=== PATIENT | female | born 1960 | race Caucasian/White ===

== ENCOUNTER → 2021-10-29 10:50 | Outpatient (REF) | payer OTHER, SELFPAY | LOC: HO.SL 10:50 | PROVIDERS: PCP Internal Medicine; Visit Provider Psychiatry & Neurology Neurology | DX: G47.33 Obstructive sleep apnea (adult) (pediatric) (principal); G47.10 Hypersomnia, unspecified; G47.62 Sleep related leg cramps; R06.83 Snoring | CPT/HCPCS: 95806 ==

== ENCOUNTER → 2021-11-13 15:12 | Outpatient (BNVA) | payer OTHER, SELFPAY | PROVIDERS: PCP Internal Medicine; Visit Provider Psychiatry & Neurology Neurology | DX: G24.3 Spasmodic torticollis (principal); G43.909 Migraine, unspecified, not intractable, without status migrainosus; R25.1 Tremor, unspecified; G47.62 Sleep related leg cramps; G47.10 Hypersomnia, unspecified; R06.83 Snoring | CPT/HCPCS: 64616; J0585 ==

== ENCOUNTER → 2022-03-05 08:24 | Outpatient (BNVA) | payer OTHER, SELFPAY | PROVIDERS: PCP Internal Medicine; Visit Provider Psychiatry & Neurology Neurology | DX: G24.9 Dystonia, unspecified (principal); G47.62 Sleep related leg cramps; G47.33 Obstructive sleep apnea (adult) (pediatric); G24.3 Spasmodic torticollis | CPT/HCPCS: 64616; J0585 ==

== ENCOUNTER → 2022-06-11 08:43 | Outpatient (BNVA) | payer OTHER, SELFPAY | PROVIDERS: PCP Internal Medicine; Visit Provider Nurse Practitioner Family | DX: R06.83 Snoring (principal); G47.10 Hypersomnia, unspecified; G47.62 Sleep related leg cramps; R68.89 Other general symptoms and signs; M54.9 Dorsalgia, unspecified; M47.812 Spondylosis without myelopathy or radiculopathy, cervical region ==

== ENCOUNTER → 2022-06-15 07:21 | Outpatient (BNVA) | payer OTHER, SELFPAY | PROVIDERS: PCP Internal Medicine; Visit Provider Psychiatry & Neurology Neurology | DX: G24.3 Spasmodic torticollis (principal); G47.62 Sleep related leg cramps; G47.33 Obstructive sleep apnea (adult) (pediatric); Z79.899 Other long term (current) drug therapy | CPT/HCPCS: 64616; J0585 ==

== ENCOUNTER 2022-09-20 07:32 | Outpatient (AMB) | payer OTHER, SELFPAY ==
--- NOTE | 2022-09-20 07:36 | MHC.OFFVIS ---
Intake Vital Signs 09/20/22 07:39 Weight 191 lb BP 126/76 Blood Pressure Location Rt brachial Position Sitting Pulse 60 Pulse Source Pulse Oximeter Pulse Oximetry (%) 97 Oxygen Delivery Method Room Air Intake Visit Reasons: BOTOX-lvm Intake Note: Botox Injection Promotions Executive Producer Required: No Allergies No Known Allergies Allergy (Verified 09/20/22 07:37) HPI HPI Comments History of Present Illness Details 61y/o female comes for treatment of his cervical dystonia ? Side effects including spread of toxin effect, dysphagia, breathing difficulties , bronchitis etc was discussed in detail and the patient agreed to the procedure.An informed consent was obtained ??? Botulinum toxin type A 200units X 1 -was diluted with 4 cc of normal saline at a concentration of 25 units in 0.5cc saline. Lot number [id number] expiration 11/2024 ??? Muscles injected ??? lani Splenius - 25 units each ??? Bi levator 25 units each Left semispinalis 10 right semispinalis 10 ??? BilTrapezius 30 units each lani Temporalis 10 units each ??? Total used 200 units PFSH Medical History Asthma Back pain Cervical spondylosis Hiatal hernia Skin cancer Surgical History H/O neck surgery History of ear surgery History of facial surgery Status post Mohs surgery Family History Father [place] (myocardial infarction) HTN (hypertension) CAD (coronary artery disease) Paternal Grandmother DM (diabetes mellitus) Mother Brain embolism and thrombosis Social History Household Members: Spouse Household Members Other:: , daughter and grandson Alcohol intake: never Patient Tobacco Use Status: Never used Tobacco Physical Exam Vital Signs: Last Vital Signs Pulse 60 09/20/22 07:39 BP 126/76 09/20/22 07:39 Pulse Ox 97 09/20/22 07:39 Oxygen Delivery Method Room Air 09/20/22 07:39 Const General: cooperative, healthy appearing and comfortable Nutritional Appearance: average body habitus Orientation/consciousness: patient oriented x3 Limitations: no limitations HEENT Other: mallampatti grade 4 Head: Yes normal to inspection and Yes normocephalic Face and sinus: Yes normal facial exam Neck Other: head tremors restricted range of motion,tenderness in left lateral cervical muscles - dystonia Neck: Yes normal visual inspection Neuro Other: Head tremor General: patient oriented x3 and tone normal Motor exam (neuro): 5/5 motor strength present throughout Deep tendon reflexes (DTR's): Right triceps reflex intensity grade: 2+, Left triceps reflex intensity grade: 2+, Rt Biceps (C5, C6): 2+, Left biceps reflex intensity grade: 2+, Right brachioradialis reflex intensity grade: 2+, Left brachioradialis reflex intensity grade: 2+, Right patellar reflex intensity grade: 3+, Left patellar reflex intensity grade: 3+, Right ankle reflex intensity grade: 3+ and Left ankle reflex intensity grade: 3+ Coordination: coiifn-ul-ohnd test normal Psych Appearance: grossly normal Speech and movement: Normal speech and movement present Office Procedures Botulinum toxin Injection 67719 - Dystonia Procedure code (CPT) selection complete Office Meds onabotulinumtoxinA Performing Provider: Jerri Bose MD Administered by: Jerri Bose MD on 09/20/22 08:40 Dose Route Admin Location Lot Number Expiration Date NDC Senior Program Analyst 200 unit IM [id number] 11/14/24 9757-9323-90 ALLERGAN/BOTOX Comments: see hpi Assessment & Plan Assessment & Plan (1) Spasmodic torticollis: Code(s): 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 The total AHI was 15/hr and oxygen dhruv was 82%. Code(s): G47.33 - Obstructive sleep apnea (adult) (pediatric) Plan Patient tolerated the procedure well she will call with any side effects Continue propranolol LA 120 mg qd for now Orders: Orders AMB Botulinum toxin Injection - Patient Supplied Today G24.3 - Spasmodic torticollis Coding Level of Care Code Est Pt Level 1 (44314) Diagnoses Spasmodic torticollis G24.3 Leg cramps, sleep related G47.62 SUSAN (obstructive sleep apnea) G47.33 CPT Codes Botox Injection - Botox 4: 37252 - Dystonia ([id number])
[2022-09-20 07:39] VITALS: BP 126/76; PULSE 60; O2SAT 97
== END 2022-09-20 08:09 | disposition home or self-care (01) ==
PROVIDERS: Visit Provider Psychiatry & Neurology Neurology
DX: G24.3 Spasmodic torticollis (principal)
CPT/HCPCS: 64616

== ENCOUNTER → 2022-09-20 07:32 | Outpatient (BNVA) | payer OTHER, SELFPAY | PROVIDERS: Visit Provider Psychiatry & Neurology Neurology | DX: G24.3 Spasmodic torticollis (principal); G47.62 Sleep related leg cramps; G47.33 Obstructive sleep apnea (adult) (pediatric) | CPT/HCPCS: 64616; 99211; J0585 ==

== ENCOUNTER 2022-12-30 14:58 | Outpatient (AMB) | payer OTHER, SELFPAY ==
--- NOTE | 2022-12-30 15:13 | A.OFFVIS_ITS ---
Intake Vital Signs 12/30/22 15:14 Height 5 ft 4 in Weight 183 lb 8 oz BMI 31.5 BP 148/88 H Blood Pressure Location Rt brachial Position Sitting Respiration 16 Pulse 102 H Pulse Source Pulse Oximeter Pulse Oximetry (%) 96 Oxygen Delivery Method Room Air Intake Visit Reasons: BOTOX - Confirmed Intake Note: Pt presents to office for Botox injections Solvent Plant Operator Required: No Allergies No Known Allergies Allergy (Verified 12/30/22 15:14) Medication List - Last Reconciled 12/30/22 by Jerri Bose MD cholecalciferol (vitamin D3) 250 mcg PO DAILY escitalopram oxalate 10 mg PO DAILY 30 days estradiol 0.01%(0.1mg/gram) grams vaginal omeprazole 20 mg PO BID onabotulinumtoxinA (Botox) units IM [id number] topiramate 25 mg PO BID HPI HPI Comments History of Present Illness Details 62y/o female comes for treatment of her cervical dystonia She also reports daily headaches/migraines. she tried gabapentin before but had nightmares.she was on propranolol 120mg - had breathing issues so stopped after many years ? Side effects including spread of toxin effect, dysphagia, breathing difficulties , bronchitis etc was discussed in detail and the patient agreed to the procedure.An informed consent was obtained ??? Botulinum toxin type A 200units X 1 -was diluted with 4 cc of normal saline at a concentration of 25 units in 0.5cc saline. Lot number [id number] expiration 03/2025 ??? Muscles injected ??? lani Splenius - 25 units each ??? Bi levator 25 units each Left semispinalis 10 right semispinalis 10 ??? BilTrapezius 30 units each lani Temporalis 10 units each ??? Total used 200 units [facility] Medical History Asthma Hiatal hernia Skin cancer Back pain Cervical spondylosis Surgical History History of ear surgery History of facial surgery H/O neck surgery Status post Mohs surgery Family History Father [place] (myocardial infarction) HTN (hypertension) CAD (coronary artery disease) Paternal Grandmother DM (diabetes mellitus) Mother Brain embolism and thrombosis Social History Household Members: Spouse Household Members Other:: , daughter and grandson Alcohol intake: never Patient Tobacco Use Status: Never used Tobacco Physical Exam Vital Signs: Last Vital Signs Pulse 102 H 12/30/22 15:14 Resp 16 12/30/22 15:14 BP 148/88 H 12/30/22 15:14 Pulse Ox 96 12/30/22 15:14 Oxygen Delivery Method Room Air 12/30/22 15:14 BMI result Body Mass Index 31.5 Const General: cooperative, healthy appearing and comfortable Nutritional Appearance: average body habitus Orientation/consciousness: patient oriented x3 Limitations: no limitations HEENT Other: mallampatti grade 4 Head: Yes normal to inspection and Yes normocephalic Face and sinus: Yes normal facial exam Neck Other: head tremors restricted range of motion,tenderness in left lateral cervical muscles - dystonia Neck: Yes normal visual inspection Neuro Other: Head tremor General: patient oriented x3 and tone normal Motor exam (neuro): 5/5 motor strength present throughout Coordination: truzjj-uh-oibb test normal Psych Appearance: grossly normal Speech and movement: Normal speech and movement present Office Procedures Botulinum toxin Injection 97586 - Dystonia Procedure code (CPT) selection complete Office Meds onabotulinumtoxinA 200 unit solution for injection Performing Provider: Jerri Bose MD Performing Location: [facility] – [place] [facility] Administered by: Jerri Bose MD on 12/30/22 15:39 Dose Route Admin Location Dispensed Lot Number Expiration Date [facility] Cotton Machine Operator 200 unit IM 200 units [id number] 03/17/25 6134-9493-30 ALLERGAN/BOTOX Comments: see hpi Assessment & Plan Assessment & Plan (1) Spasmodic torticollis: Code(s): 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 The total AHI was 15/hr and oxygen dhruv was 82%. Code(s): G47.33 - Obstructive sleep apnea (adult) (pediatric) Plan Patient tolerated the procedure well she will call with any side effects I will trial her on topiramate 25mg bid Orders: Orders AMB Botulinum toxin Injection Today G24.3 - Spasmodic torticollis Medications: New topiramate 25 mg PO BID 60 tabs 6RF Coding Level of Care Code Est Pt Level 1 (38634) Diagnoses Spasmodic torticollis G24.3 Leg cramps, sleep related G47.62 SUSAN (obstructive sleep apnea) G47.33 CPT Codes Botox Injection - Botox 4: 14213 - Dystonia ([id number])
[2022-12-30 15:14] VITALS: BP 148/88; PULSE 102; RESP 16; O2SAT 96; BMI 31.5
== END 2022-12-30 15:35 | disposition home or self-care (01) ==
PROVIDERS: PCP Internal Medicine; Visit Provider Psychiatry & Neurology Neurology
DX: G24.3 Spasmodic torticollis (principal); G47.62 Sleep related leg cramps; G47.33 Obstructive sleep apnea (adult) (pediatric)
CPT/HCPCS: 64616

== ENCOUNTER → 2022-12-30 14:58 | Outpatient (BNVA) | payer OTHER, SELFPAY | PROVIDERS: PCP Internal Medicine; Visit Provider Psychiatry & Neurology Neurology | DX: G24.3 Spasmodic torticollis (principal); G43.709 Chronic migraine without aura, not intractable, without status migrainosus; G47.62 Sleep related leg cramps; G47.33 Obstructive sleep apnea (adult) (pediatric) | CPT/HCPCS: 64616; 99211; J0585 ==

== ENCOUNTER 2024-01-23 10:17 | Outpatient (AMB) | payer OTHER, SELFPAY ==
--- NOTE | 2024-01-23 10:18 | A.OFFVIS_ITS ---
Vital Signs 01/23/24 10:21 Height 5 ft 4 in Weight 180 lb 5.41 oz BMI 31.0 BP 136/78 Blood Pressure Location Rt brachial Position Sitting Pulse 102 H Pulse Source Pulse Oximeter Intake Visit Reasons: Elevated calcium levels Intake Note: New patient externally referred by PCP Elevated Calcium Levels. Supervisor Typesetting Required: No Accompanied by: Self / Same As Patient Allergies No Known Allergies Allergy (Verified 01/23/24 10:22) Medication List - Last Reconciled 01/23/24 by Rehan Collado MD atorvastatin 20 mg PO DAILY biotin mcg PO cholecalciferol (vitamin D3) 25 mcg PO DAILY escitalopram oxalate 10 mg PO DAILY 30 days estradiol 0.01%(0.1mg/gram) grams vaginal omeprazole 20 mg PO BID onabotulinumtoxinA (Botox) units IM [id number] topiramate 25 mg PO BID HPI Comments Details: 63 YO F who is seen in consultation at the request of PCP for Hypercalcemia. First learned about this few mos ago First noted to have high calcium as above . Not Currently using Calcium supplement . Takes 1000 IU of Vitamin D daily. Currently No using HCTZ. Kidney stones: No Osteoporosis: No History of [place] use: No Biotin use: takes 05942 IU 2 mos ago Family history of high calcium or kidney stones: No Renal imaging: No DXA:No Labs:10.8 calcium PTH =62.5 PFSH Medical History (Updated 01/23/24 @ 10:24 by Rehan Collado MD) Hypercalcemia Asthma Hiatal hernia Skin cancer Back pain Cervical spondylosis Surgical History History of ear surgery History of facial surgery H/O neck surgery Status post Mohs surgery Family History Father [place] (myocardial infarction) HTN (hypertension) CAD (coronary artery disease) Paternal Grandmother DM (diabetes mellitus) Mother Brain embolism and thrombosis Social History Household Members: Spouse Household Members Other:: , daughter and grandson Alcohol intake: never Patient Tobacco Use Status: Never used Tobacco Physical Exam Vital Signs: Last Vital Signs Pulse 102 H 01/23/24 10:21 BP 136/78 01/23/24 10:21 BMI result Body Mass Index 31.0 Assessment & Plan Assessment & Plan (1) Hypercalcemia: Code(s): E83.52 - Hypercalcemia Category: Medical Plan: This is a 63-year-old female with a history of mildly elevated calcium level high normal PTH suggestive of mild primary hyperparathyroidism . Other possibility is use of biotin which interferes with calcium and PTH measurement Plan is to have the patient hold the biotin for 2 weeks and then recheck calcium, albumin, PTH, 25 hydroxy vitamin-D. If above consistent with primary hyperparathyroidism will then order 24 hour urine for calcium and creatinine as well as DEXA bone density of the hip, spine distal forearm as well as renal ultrasound to assess whether surgical exploration is necessary. If calcium and PTH are deemed to be normal off biotin the no further workup is necessary Orders: Orders Calcium 4 Weeks E83.52 - Hypercalcemia Vitamin D 25-OH Total 4 Weeks E83.52 - Hypercalcemia Parathyroid Hormone Intact 4 Weeks E83.52 - Hypercalcemia Albumin Level 4 Weeks E83.52 - Hypercalcemia Coding Level of Care Code New Pt Level 4 (99972) Diagnoses Hypercalcemia E83.52
[2024-01-23 10:21] VITALS: BP 136/78; PULSE 102; BMI 31.0
== END 2024-01-23 14:59 | disposition home or self-care (01) ==
PROVIDERS: PCP Internal Medicine; Visit Provider Internal Medicine Endocrinology, Diabetes & Metabolism
DX: E83.52 Hypercalcemia (principal)
CPT/HCPCS: 99204